=== PATIENT | female | born 1945 | race Caucasian/White ===

== ENCOUNTER 2021-05-13 19:02 | Emergency (ER) | payer OTHER ==
[~2021-05-13] VITALS: Ht 167.6 cm; Wt 105.0 kg
[2021-05-13 19:05] VITALS: BP 148/86
--- NOTE | 2021-05-13 19:09 | NUR ---
PT A&OX4, NO ACUTE DISTRESS, AND PT C/O PAIN TO LEFT HIP, POST GROUND LEVEL FALL FROM HER SCOOTER, PT IN GOOD SPIRITS, AND SAYS SHE'S HAD A BILATERAL HIP REPLACEMENT IN THE PAST, AND JUST WANTS TO MAKE SURE THAT SHE HASN'T BROKEN IT.
[2021-05-13] MEDS ORDERED: METHOCARBAMOL 750 MG TABLET PO ONE (20:30)
[2021-05-13] MEDS ORDERED: METHOCARBAMOL 750 MG TABLET ONE (20:33)
--- NOTE | 2021-05-13 20:38 | NUR ---
PT MEDICATED WITH MEDS, SEE EMAR, AND PT TAKEN TO CT SCAN BY [employer], AND PT IN NO ACUTE DISTRESS.
[2021-05-13] MEDS ORDERED: PLEASE ENTER ALLERGIES MC SCH (21:00)
--- NOTE | 2021-05-13 21:36 | NUR ---
PT WHEELED TO CT SCAN IN WHEELCHAIR, AND BROUGHT BACK TO ROOM. PT TOLERATED WELL, AND WAS PREVIOUSLY MEDICATED, SEE EMAR. PT A&OX4, NO ACUTE DISTRESS, BUT STILL COMPLAINS OF POINT TENDERNESS TO LEFT HIP AREA.
--- NOTE | 2021-05-13 22:25 | NUR ---
PT TO BE D/C'D AND WAS TOLD SHE COULD GET DRESSED BUT TO WAIT FOR HER PAPERWORK. PT V/U.
--- NOTE | 2021-05-13 22:42 | NUR ---
PT GOT DRESSED BY HERSELF AND ABLE TO MOVE BETTER, AND IN WHEELCHAIR. F/U AND D/C INSTRUCTIONS GIVEN TO PT AND SHE V/U. PT WHEELED TO DISCHARGE AND THEN OUTSIDE. PT WILL CALL A CAB TO GET HER HOME.
== END 2021-05-13 22:46 | disposition home or self-care (01) ==
LOC: ED 19:30
DX: S39.012A Strain of muscle, fascia and tendon of lower back, initial encounter (principal); S70.02XA Contusion of left hip, initial encounter; S09.90XA Unspecified injury of head, initial encounter; I10 Essential (primary) hypertension; W01.0XXA Fall on same level from slipping, tripping and stumbling without subsequent striking against object, initial encounter; Y93.89 Activity, other specified; Y92.59 Other trade areas as the place of occurrence of the external cause; Y99.8 Other external cause status
CPT/HCPCS: 70450; 72110; 72192; 99285